=== PATIENT | female | born 1980 | race Caucasian/White ===

== ENCOUNTER 2017-02-02 16:56 | Emergency (ER) | payer OTHER | END 2017-02-02 18:35 | disposition home or self-care (01) | LOC: ER 16:56 | DX: S46.911A Strain of unspecified muscle, fascia and tendon at shoulder and upper arm level, right arm, initial encounter (principal); R11.0 Nausea; F17.210 Nicotine dependence, cigarettes, uncomplicated; Z98.51 Tubal ligation status; Z90.710 Acquired absence of both cervix and uterus; V49.40XA Driver injured in collision with unspecified motor vehicles in traffic accident, initial encounter ==